=== PATIENT | male | born 1955 | race Caucasian/White ===

== ENCOUNTER 2022-04-01 15:29 | Inpatient (IN) ==
--- NOTE | 2022-04-01 16:13 | Emergency Department Note ---
Impression & Plan Symptomatic anemia, MDS (myelodysplastic syndrome), Thrombocytopenia ED Provider Note NAME: PJ NUNEZ AGE: 66 SEX: M : 1955 ARRIVES VIA: Walk-In INFORMANT: Patient, ED PROVIDER(S): Bong Abdi DO CHIEF COMPLAINT: Weakness HPI: The patient is a 66-year-old male who has a history of primary bone marrow cancer who presented to the emergency department for an evaluation of generalized weakness. He normally follows through the [facility] system in [place] in [place]. The patient had a CBC and was told by his primary visual merchandise manager to come to the emergency department for blood transfusion. The patient states he h as no black or bloody bowel movements. He denies having any chest pain but does complain of shortness of breath with exertion and lower extremity swelling. He states his symptoms are not new. They have been ongoing for quite some time. His family member states they were not going to go to [facility] because they did not want to "wait and some ER for 14 hours". ROS: See above HPI for pertinent positives & negatives. A total of 10 systems reviewed and were otherwise negative. PAST MEDICAL HISTORY: See Below PAST SURGICAL HISTORY: See Below FAMILY HISTORY: See Below SOCIAL HISTORY: See Below HOME MEDICATIONS: See Below ALLERGIES: See Below VITALS: See Below PHYSICAL EXAMINATION: GENERAL: Patient is awake alert in no acute distress patient is resting comfortably and showing no signs of anxiety EYES: The conjunctivae are clear. The pupils are round and reactive. EARS, NOSE, MOUTH AND THROAT: The nose is without any evidence of any deformity. NECK: The neck is nontender and supple. RESPIRATORY: Normal respiratory effort is noted there is no evidence of wheezing rhonchi or rales CARDIOVASCULAR: Regular rate and rhythm noted there no murmurs rubs or gallops normal S1 normal S2. GASTROINTESTINAL: The abdomen is soft. Abdomen is nontender. MUSCULOSKELETAL/EXTREMITIES: There is no evidence of gross deformity full range of motion is noted in the hips and shoulders. SKIN: Skin is warm and dry. There is no significant pedal edema. NEUROLOGIC: Patient is awake alert and oriented x3 MEDICAL DECISION MAKING: The patient is a 66-year-old male who presented to the emergency department for an evaluation of weakness. The patient has a history of myelodysplastic syndrome. He does develop bone marrow suppression and has low hemoglobin at times. He has had low platelets as well. He is required blood transfusion many times in the past. The patient was contacted by his primary visual merchandise manager and told to go to the emergency department for blood transfusion. I discussed the patient's laboratory results with him. I did consent the patient for blood transfusion and ordered multiple units of blood as well as platelets for him. [facility] agreed to evaluate patient in the emergency department for further management and disposition. Triage Nursing notes reviewed. Prior medical records reviewed Vital Signs: reviewed and remarkable for tachycardia. Differential diagnosis: Infection, dehydration, metabolic abnormality, hypo/hyperglycemia, electrolyte disturbance, anemia, hypoxia, cardiac sources, intracerebral event, toxicologic, neurologic, as well as other pathologies. ER treatment provided: See below Diagnostics interpreted by me: ECG: EKG was obtained in the emergency department. My interpretation is atrial sensed with ventricular paced rhythm at 112 bpm. PVCs were noted. No [place] sinus beats were appreciated. No previous tracing was available. Cardiac Monitoring: An order was placed for continuous cardiac monitoring. The monitor shows a rate of 106 bpm with sinus tachycardia. Laboratory studies: As stated above and show below. Imaging studies: See below Consultation(s): I discussed this case with Dr. Montes who is [facility] I have personally spent greater than 45 minutes of critical care time in the direct management of this patient. This includes bedside care, interpretation of diagnostic studies, and testing, discussion with consultants, patient, and family members, and other required patient management activities. This 45 minutes is in excess of all separately billable procedures. Past Med/Surg History Medical History (Updated 04/01/22 @ 21:12 by Bong Abdi DO) Hypertension Ischemic cardiomyopathy MDS (myelodysplastic syndrome) Pacemaker Primary cancer of bone marrow Social History Smoking Status: Unknown if ever smoked Preferred Language: South Korean Feels Safe at Home: Yes Allergies Allergies Allergy/AdvReac Type Severity Reaction Status Date / Time NSAIDS (Non-Steroidal AdvReac Unknown CONTRAINDICATED Verified 04/01/22 19:23 Anti-Inflamma D/T BLEEDING ISSUES Home Meds Home Medications Medication Instructions Recorded Confirmed acetaminophen 325 mg tablet 650 mg PO DIRECTED PRN Pain 04/01/22 04/01/22 (Tylenol) cholecalciferol (vitamin D3) 25 25 mcg PO DAILY 04/01/22 04/01/22 mcg (1,000 unit) capsule (Vitamin D3) empagliflozin 10 mg tablet 10 mg PO HS 04/01/22 04/01/22 (Jardiance) fluticasone propionate 50 2 spray intranasal DAILY PRN 04/01/22 04/01/22 mcg/actuation nasal Allergy Symptoms spray,suspension melatonin 10 mg tablet 10 mg PO HS PRN Sleep 04/01/22 04/01/22 metoprolol tartrate 25 mg tablet 25 mg PO BID 04/01/22 04/01/22 multivitamin 1 tab PO DAILY 04/01/22 04/01/22 spironolactone 25 mg tablet 25 mg PO HS 04/01/22 04/01/22 tamsulosin 0.4 mg capsule 0.8 mg PO HS 04/01/22 04/01/22 Results & Data (ED) Vital Signs Vital Signs - 24 hr 04/01/22 15:34 04/01/22 16:33 04/01/22 17:00 Temperature 37 C Temperature Source Temporal Artery Scan Pulse Rate 119 H 107 H Pulse Rate from SpO2 Sensor 106 H Pulse Rhythm Respiratory Rate 22 20 Respiratory Effort / Characteristics Non-Labored Spontaneous Respiratory Depth Normal Blood Pressure 101/63 125/92 Blood Pressure Mean 75 103 Pulse Oximetry 96 95 Oxygen Delivery Method Room Air Sepsis Recent Fever Within 48 Hours No Sepsis New/Unexplained Change in Mental Status N/A Sepsis Action Taken by Nursing No Action Required 04/01/22 17:00 04/01/22 18:13 04/01/22 18:34 Temperature 37.1 C 37.2 C Temperature Source Oral Oral Pulse Rate 107 H 105 H 94 H Pulse Rate from SpO2 Sensor 101 H Pulse Rhythm Regular Regular Respiratory Rate 18 20 20 Respiratory Effort / Characteristics Respiratory Depth Blood Pressure 113/87 123/80 Blood Pressure Mean 95 94 Pulse Oximetry 95 96 97 Oxygen Delivery Method Sepsis Recent Fever Within 48 Hours Sepsis New/Unexplained Change in Mental Status Sepsis Action Taken by Senior Care Medications Current Medication List: was personally reviewed by me Laboratory Data Attestation: I reviewed the patient's lab results. Result diagrams: 04/01/22 16:01 04/01/22 16:01 Lab Results 12/19/22 12/19/22 12/19/22 Range/Units 16:01 16:01 16:01 WBC 5.20 (4.8-10.8) K/ul RBC 2.66 L (4.63-6.08) M/uL Hgb 7.5 L (14.0-18.0) g/dl Hct 22.3 L (40.1-51.0) % MCV 83.8 (80.0-100.0) fL MCH 28.2 (25.0-34.0) pg MCHC 33.6 (32.0-36.0) g/dL RDW Std Deviation 45.1 (36.4-46.3) fL RDW Coeff of Toy 14.7 H (11.5-14.5) % Plt Count 22 L* (130-400) K/uL MPV 11.0 (9.4-12.4) fL Absolute Nucleated RBC 0.05 H (0-0) K/uL Nucleated RBC % (auto) 1.0 % Platelet Estimate Decreased L (Normal) PT 12.7 H (9.0-12.0) Seconds INR 1.2 H (0.9-1.1) APTT 33.1 H (21.0-31.0) Seconds PTT Ratio 1.2 Sodium (136-145) mmol/L Potassium (3.5-5.1) mmol/L Chloride (98-107) mmol/L Carbon Dioxide (21-32) mmol/L Anion Gap (3-11) BUN (6-23) mg/dl Creatinine (0.6-1.4) mg/dl Est Cr Clr Drug Dosing ml/min Est GFR ( Amer) ml/min Est GFR (Non-Af Amer) ml/min BUN/Creatinine Ratio (10-20) Glucose (70-99(Fasting)) mg/dl Calcium (8.5-10.1) mg/dl Total Bilirubin (0.2-1.0) mg/dl AST (13-39) U/L ALT (7-52) U/L Alkaline Phosphatase (34-104) U/L Total Protein (6.0-8.3) gm/dl Albumin (3.4-5.0) gm/dl Globulin (2.5-4.0) gm/dl Albumin/Globulin Ratio (0.9-2) SARS-CoV-2, RNA, NAAT (NEGATIVE) Blood Type O Positive Blood Type Recheck Antibody Screen NEGATIVE Crossmatch See Detail 04/01/22 04/01/22 04/01/22 Range/Units 16:01 16:15 17:34 WBC (4.8-10.8) K/ul RBC (4.63-6.08) M/uL Hgb (14.0-18.0) g/dl Hct (40.1-51.0) % MCV (80.0-100.0) fL MCH (25.0-34.0) pg MCHC (32.0-36.0) g/dL RDW Std Deviation (36.4-46.3) fL RDW Coeff of Toy (11.5-14.5) % Plt Count (130-400) K/uL MPV (9.4-12.4) fL Absolute Nucleated RBC (0-0) K/uL Nucleated RBC % (auto) % Platelet Estimate (Normal) PT (9.0-12.0) Seconds INR (0.9-1.1) APTT (21.0-31.0) Seconds PTT Ratio Sodium 134 L (136-145) mmol/L Potassium 4.3 (3.5-5.1) mmol/L Chloride 103 (98-107) mmol/L Carbon Dioxide 23 (21-32) mmol/L Anion Gap 8 (3-11) BUN 23 (6-23) mg/dl Creatinine 1.35 (0.6-1.4) mg/dl Est Cr Clr Drug Dosing 57.5 ml/min Est GFR ( Amer) 62.1 ml/min Est GFR (Non-Af Amer) 53.6 ml/min BUN/Creatinine Ratio 17.0 (10-20) Glucose 140 H (70-99(Fasting)) mg/dl Calcium 8.7 (8.5-10.1) mg/dl Total Bilirubin 1.0 (0.2-1.0) mg/dl AST 22 (13-39) U/L ALT 26 (7-52) U/L Alkaline Phosphatase 173 H (34-104) U/L Total Protein 7.4 (6.0-8.3) gm/dl Albumin 3.6 (3.4-5.0) gm/dl Globulin 3.8 (2.5-4.0) gm/dl Albumin/Globulin Ratio 0.9 (0.9-2) SARS-CoV-2, RNA, NAAT NEGATIVE (NEGATIVE) Blood Type Blood Type Recheck O Positive Antibody Screen Crossmatch Discharge Plan Visit Data Chief Complaint: Referred by Doctor Stated Complaint: BONE MARROW CANCER,BLOOD TRANSFUSION,REFERRED ED Provider: Bong Abdi Discharge Problem: Symptomatic anemia, MDS (myelodysplastic syndrome), Thrombocytopenia Patient Disposition: Being Evaluated by Hospitalist Discharge Instructions Interventions: ED Discharge Assessment Last Done: 04/01/22 21:13
[2022-04-01 16:37] LABS: Albumin Globulin Ratio 0.9 (0.9-2); Albumin Level 3.6 gm/dl (3.4-5.0); Calcium 8.7 mg/dl (8.5-10.1); Creatinine Clr Calc Pharmacy 57.5 ml/min; Est GFR (African American) 62.1 ml/min; Est GFR (Non-African American) 53.6 ml/min; Globulin 3.8 gm/dl (2.5-4.0); Potassium 4.3 mmol/L (3.5-5.1); Total Protein 7.4 gm/dl (6.0-8.3)
[2022-04-01 16:42] LABS: Hematocrit (blood only) 22.3 % (40.1-51.0); Hemoglobin 7.5 g/dl (14.0-18.0); Mean Corpuscular Hemoglobin 28.2 pg (25.0-34.0); Mean Corpuscular Hgb Conc 33.6 g/dL (32.0-36.0); Mean Corpuscular Volume 83.8 fL (80.0-100.0); Nucleated RBC # (auto) 0.05 K/uL (0-0); Platelet Count 22 K/uL (130-400); Platelet Estimate Decreased (Normal); RDW Coefficient of Variation 14.7 % (11.5-14.5); RDW Standard Deviation 45.1 fL (36.4-46.3); Red Blood Count 2.66 M/uL (4.63-6.08)
[2022-04-01 16:49] LABS: INR 1.2 (0.9-1.1); Partial Thromboplastin Ratio 1.2; Partial Thromboplastin Time 33.1 Seconds (21.0-31.0); Prothrombin Time 12.7 Seconds (9.0-12.0)
[2022-04-01] MEDS ORDERED: SODIUM CHLORIDE 0.9% 250 ML IV PRN (17:06)
--- NOTE | 2022-04-01 17:38 | History & Physical Report ---
Date of Service April 01, 2022 Assessment & Plan (1) MDS (myelodysplastic syndrome): Plan: - Recently diagnosed by bone biopsy in January, follows with [facility] hematology. - Due to begin chemo this month. - Hgb 7.5, PLT 22. No obvious source of acute bleeding, no petechia, lesions on oral mucosa. - 2 units irradiated pRBCs, 1 units of platelets ordered for transfusion. - Recheck h/h after transfusion is complete and AM labs. - Patient asking for prn medicine for diffuse body aches--cannot tolerate Tylenol as it makes him very diaphoertic, want to avoid NSAIDs--will order Tramadol prn. (2) Ischemic cardiomyopathy: Plan: - No prior records, reports previous EF 15% improved to 25% with pacer. - Continue Jardiance, metoprolol, spironolactone. (3) Hypertension: Plan: - Continue metoprolol, hold for HR < 60, SBP < 100. (4) BPH (benign prostatic hyperplasia): Plan: - Continue Flomax. - Checking UA for infection given reports of increased urinary frequency, aches, decreased appetite x4 days. Plan - Admit to PCU. - SCDs, defer on chemoppx given transfusion needs. - Full Code. History of Present Illness Chief Complaint: low hemoglobin and platelets on outpatient labs Primary Care Provider: Griselda Siu MD Brandon Lira is a 66-year-old male with past medical history myelodysplastic syndrome, ischemic cardiomyopathy with pacemaker present, and hypertension who is presenting today at the referral of an outside provider. Patient was recently diagnosed with MDS several months ago and has frequent labs drawn to monitor his blood counts, and has frequently required blood transfusions, 9 total since January. He usually presents to the hospital for transfusion when his hgb approaches 7. He was told today by his yield improvement engineer that his hemoglobin was approaching 7 and he referred to the ED for a blood transfusion. As he typically receives his care through the [facility] health system, we do not have any prior records but it seems as he was diagnosed with MDS by bone biopsy in January and is set to begin chemo this month. He has required 9 blood transfusions (units?) since January. He recently had an EGD and colonoscopy and reports there were no abnormal findings. he has not had any melena or blood in stool or rectum. As he normally is when is hemoglobin is low, he is tired, weak, fatigued, and short of breath. No chest pain or palpitations. He has decreased appetite and increased urination ovdr the poast 4 days, no fever, chills, abdominal pain, nausea, vomiting, or dysuria. In the ED he is mildly tachycardic, otherwise VS wnl and stable. Hgb is 7.5 and PLT 22. INR 1.2, aPTT 33.1. 2 units of irradiated pRBCs and 1 unit of platelets ordered for transfusion. Allergies Allergy/AdvReac Type Severity Reaction Status Date / Time NSAIDS (Non-Steroidal AdvReac Unknown CONTRAINDICATED Verified 04/01/22 19:23 Anti-Inflamma D/T BLEEDING ISSUES Home Medications Medication Instructions Recorded Confirmed Type acetaminophen 325 mg tablet 650 mg PO DIRECTED PRN Pain 04/01/22 04/01/22 History (Tylenol) cholecalciferol (vitamin D3) 25 25 mcg PO DAILY 04/01/22 04/01/22 History mcg (1,000 unit) capsule (Vitamin D3) empagliflozin 10 mg tablet 10 mg PO HS 04/01/22 04/01/22 History (Jardiance) fluticasone propionate 50 2 spray intranasal DAILY PRN 04/01/22 04/01/22 History mcg/actuation nasal Allergy Symptoms spray,suspension melatonin 10 mg tablet 10 mg PO HS PRN Sleep 04/01/22 04/01/22 History metoprolol tartrate 25 mg tablet 25 mg PO BID 04/01/22 04/01/22 History multivitamin 1 tab PO DAILY 04/01/22 04/01/22 History spironolactone 25 mg tablet 25 mg PO HS 04/01/22 04/01/22 History tamsulosin 0.4 mg capsule 0.8 mg PO HS 04/01/22 04/01/22 History Past Med/Surg History Medical History (Updated 04/01/22 @ 21:12 by Bong Abdi DO) Hypertension Ischemic cardiomyopathy MDS (myelodysplastic syndrome) Pacemaker Primary cancer of bone marrow Social History Smoking Status: Never smoker Second Hand Exposure: Yes; Hx Alcohol Use: Yes Alcohol type: hard liquor Hx Substance Use: No Preferred Language: Luxembourgish Communication Ability: Effective Exercise Manager Required: No Beliefs That Will Affect Care: None Current Living Situation: Alone Other Information That Helps Us Care for You: No Feels Safe at Home: Yes Safety Concerns: Feels Safe At This Time Assistive Devices: None Review of Systems Review of Systems: Constitutional: ongoing weakness, fatigue, night sweats, body aches, decreased appetite since January, appetite worse x 4 days; No fever/chills, Eyes: No diplopia, no worsening or blurred vision ENT: normal hearing, no trouble swallowing Respiratory: LA; No cough, sputum, dyspnea at rest Cardiovascular: No chest pain, tightness or palpitations Abdomen: No pain, nausea, vomiting, diarrhea or constipation : increased urinary frequency; Denies dysuria, hematuria, increased urgency/frequency, urinary retention Musculoskeletal: No joint pain, calf pain, swelling Neurologic: No weakness, numbness/tingling, or balance problems Psychiatric: No anxiety or depression Skin: No rash or itch Physical Exam Physical Exam: General: awake, alert, no apparent distress, + pallor Head: Normocephalic, atraumatic ENT: PERRL, EOMI, no pharyngeal exudate, mucous membranes moist Chest: Clear to auscultation, on room air, no adventitious breath sounds Cardiac: tachycardic rate and rhythm, no murmur, no JVD, normal peripheral pulses, good capillary refill Abdominal: NABS x 4 quadrants, soft, nontender to palpation, no rebound, guarding or tenderness Extremities: Normal inspection, no peripheral edema or erythema, calfs nontender to palpation Psych: Normal mood and affect Neuro: AAO x 3, strength intact bilaterally and rated 5/5, no motor deficits, speech is clear, no peripheral sensory deficits Skin: no rash or erythema Results & Data Results & Data ([facility]) Vital Signs (Past 12 Hours) Vital Signs Temp Pulse Resp BP Pulse Ox O2 Del Method 04/01/22 17:00 107 H 18 95 04/01/22 17:00 125/92 04/01/22 16:33 107 H 20 95 04/01/22 15:34 37 C 119 H 22 101/63 96 Room Air Laboratory Results Abnormal lab results 04/01/22 04/01/22 04/01/22 Range/Units 16:01 16:01 16:01 RBC 2.66 L (4.63-6.08) M/uL Hgb 7.5 L (14.0-18.0) g/dl Hct 22.3 L (40.1-51.0) % RDW Coeff of Toy 14.7 H (11.5-14.5) % Plt Count 22 L* (130-400) K/uL Absolute Nucleated RBC 0.05 H (0-0) K/uL Platelet Estimate Decreased L (Normal) PT 12.7 H (9.0-12.0) Seconds INR 1.2 H (0.9-1.1) APTT 33.1 H (21.0-31.0) Seconds Sodium (136-145) mmol/L Glucose (70-99(Fasting)) mg/dl Alkaline Phosphatase (34-104) U/L Crossmatch See Detail 04/01/22 Range/Units 16:01 RBC (4.63-6.08) M/uL Hgb (14.0-18.0) g/dl Hct (40.1-51.0) % RDW Coeff of Toy (11.5-14.5) % Plt Count (130-400) K/uL Absolute Nucleated RBC (0-0) K/uL Platelet Estimate (Normal) PT (9.0-12.0) Seconds INR (0.9-1.1) APTT (21.0-31.0) Seconds Sodium 134 L (136-145) mmol/L Glucose 140 H (70-99(Fasting)) mg/dl Alkaline Phosphatase 173 H (34-104) U/L Crossmatch ECG Additional Comments: Atrial-sensed ventricular-paced rhythm with occasional Premature ventricular complexes Biventricular pacemaker detected Abnormal ECG No previous ECGs available. Code Status & VTE Plan Code Status Full Code. Supervising Physician Co-Signing Physician Notes I personally saw and examined the patient. I verified all barfield points and agree with Jeane Sharif PA-C with the following exceptions and/or additions: 66-year-old male who has his usual care at [facility] told to come to the ER. Mainly feels run down. Advised to go to "any ER" by his oncologist for blood and platelet transfusions. Unfortunately he gets all of his care in the [facility] system therefore no previous notes available on admission. He has a number of chronic complaints such as restless leg syndrome which I recommended he follows up with his usual primary care physician and oncologist. Only acute complaint is feeling rundown. No nausea, vomiting, abdominal pain, melena or bright red blood in stool. O/E HS1+2, RRR, no murmurs, Chest CTAB, Abdo SNT, A&Ox3 PG Care Time/CCT Total # of Minutes Spent Total Time Spent with Patient: Total time spent is greater than 50% in coordination of care (as documented) at patient's floor/unit and/or counseling patient: Coding Level of Care Code 19509 Initial Inpt Care Lvl 3 Diagnoses MDS (myelodysplastic syndrome) D46.9 Ischemic cardiomyopathy I25.5 Hypertension I10 BPH (benign prostatic hyperplasia) N40.0
[2022-04-01] MEDS ORDERED: ALUMINUM/MAGNESIUM SUSP 30 ML UDC PO PRN (21:13)
[2022-04-01] MEDS ORDERED: FLUTICASONE PROPIONATE NA SPR 16 GM BTL PRN (21:13)
[2022-04-01] MEDS ORDERED: traMADol HCL 50 MG TABLET PO PRN ×2 (21:13)
[2022-04-01] MEDS ORDERED: POLYETHYLENE (MIRALAX) 17 GM PACK PO PRN (21:13)
[2022-04-01] MEDS: METOPROLOL TARTRATE 25 MG TAB PO SCH (23:25)
[2022-04-01] MEDS: EMPAGLIFLOZIN 25 MG TAB PO SCH (23:25)
[2022-04-01] MEDS: SPIRONOLACTONE 25 MG TAB PO SCH (23:26)
[2022-04-01] MEDS: TAMSULOSIN HCL 0.4 MG CAP PO SCH (23:26)
[2022-04-02 07:22] LABS: BUN Creatinine Ratio 17.9 (10-20); Calcium 8.2 mg/dl (8.5-10.1); Creatinine Clr Calc Pharmacy 73.2 ml/min; Est GFR (African American) 83.2 ml/min; Est GFR (Non-African American) 71.8 ml/min; Potassium 3.9 mmol/L (3.5-5.1)
[2022-04-02 07:48] LABS: Hematocrit (blood only) 22.5 % (40.1-51.0); Hemoglobin 7.9 g/dl (14.0-18.0); Mean Corpuscular Hemoglobin 29.2 pg (25.0-34.0); Mean Corpuscular Hgb Conc 35.1 g/dL (32.0-36.0); Mean Platelet Volume 10.5 fL (9.4-12.4); Nucleated RBC # (auto) 0.05 K/uL (0-0); Nucleated RBC % (auto) 1.2 %; Platelet Count 16 K/uL (130-400); RDW Coefficient of Variation 14.3 % (11.5-14.5); RDW Standard Deviation 42.8 fL (36.4-46.3); Red Blood Count 2.71 M/uL (4.63-6.08); White Blood Count 4.08 K/ul (4.8-10.8)
[2022-04-02 07:49] LABS: Basophils # (auto) 0.01 K/uL (0-0.2); Basophils % (auto) 0.2 %; Eosinophils # (auto) 0.01 K/uL (0-0.50); Eosinophils % (auto) 0.2 %; Immature Granulocytes # (auto) 0.23 K/uL (0.00-0.02); Immature Granulocytes % (auto) 5.6 %; Lymphocytes # (auto) 0.59 K/uL (1.2-3.4); Lymphocytes % (auto) 14.5 %; Monocytes # (auto) 0.51 K/uL (0.24-0.82); Monocytes % (auto) 12.5 %; Neutrophils # (auto) 2.73 K/uL (1.4-6.5); Ovalocytes 1+; Platelet Estimate Signific. Decreased (Normal); Polychromasia 1+
[2022-04-02] MEDS: METOPROLOL TARTRATE 25 MG TAB PO SCH ×2 (08:38→19:55)
--- NOTE | 2022-04-02 17:54 | Hospitalist Progress Note ---
Date of Service April 02, 2022 Assessment & Plan (1) MDS (myelodysplastic syndrome): Plan: - Platelet count dropped to 16,000 today yesterday was 25,000, he may need more transfusion of platelets and packed RBC, monitor for now, will be asked for hematology consult if continues to drop Recently diagnosed by bone biopsy in January, follows with [facility] hematology. - Due to begin chemo this month. - Hgb 7.5, PLT 22. No obvious source of acute bleeding, no petechia, lesions on oral mucosa. - 2 units irradiated pRBCs, 1 units of platelets ordered for transfusion. - Recheck h/h after transfusion is complete and AM labs. - Patient asking for prn medicine for diffuse body aches--cannot tolerate Tylenol as it makes him very diaphoertic, want to avoid NSAIDs--will order Tramadol prn. (2) Ischemic cardiomyopathy: Plan: - No prior records, reports previous EF 15% improved to 25% with pacer. - Continue Jardiance, metoprolol, spironolactone. (3) Hypertension: Plan: - Continue metoprolol, hold for HR < 60, SBP < 100. (4) BPH (benign prostatic hyperplasia): Plan: - Continue Flomax. - Checking UA for infection given reports of increased urinary frequency, aches, decreased appetite x4 days. Plan - Admit to PCU. - SCDs, defer on chemoppx given transfusion needs. - Full Code. Admission and Anticipated Discharge Date Admission Date: April 01, 2022 Review of Systems Review of Systems: Constitutional: ongoing weakness, fatigue, night sweats, body aches, decreased appetite since January, appetite worse x 4 days; No fever/chills, Eyes: No diplopia, no worsening or blurred vision ENT: normal hearing, no trouble swallowing Respiratory: LA; No cough, sputum, dyspnea at rest Cardiovascular: No chest pain, tightness or palpitations Abdomen: No pain, nausea, vomiting, diarrhea or constipation : increased urinary frequency; Denies dysuria, hematuria, increased urgency/frequency, urinary retention Musculoskeletal: No joint pain, calf pain, swelling Neurologic: No weakness, numbness/tingling, or balance problems Psychiatric: No anxiety or depression Skin: No rash or itch Physical Exam Physical Exam: General: awake, alert, no apparent distress, + pallor Head: Normocephalic, atraumatic ENT: PERRL, EOMI, no pharyngeal exudate, mucous membranes moist Chest: Clear to auscultation, on room air, no adventitious breath sounds Cardiac: tachycardic rate and rhythm, no murmur, no JVD, normal peripheral pulses, good capillary refill Abdominal: NABS x 4 quadrants, soft, nontender to palpation, no rebound, guarding or tenderness Extremities: Normal inspection, no peripheral edema or erythema, calfs nontender to palpation Psych: Normal mood and affect Neuro: AAO x 3, strength intact bilaterally and rated 5/5, no motor deficits, speech is clear, no peripheral sensory deficits Skin: no rash or erythema Results & Data Results & Data ([facility]) Vital Signs (Past 12 Hours) Vital Signs Temp Pulse Resp BP Pulse Ox O2 Del Method 04/02/22 15:37 36.6 C 97 H 18 129/72 96 Room Air 04/02/22 15:34 Room Air 04/02/22 11:52 36.5 C 110 H 20 116/63 98 Room Air 04/02/22 07:10 36.5 C 109 H 18 119/67 96 Room Air PG Care Time/CCT Total # of Minutes Spent Total Time Spent with Patient: Total time spent is greater than 50% in coordination of care (as documented) at patient's floor/unit and/or counseling patient: Coding Level of Care Code 23864 Subseq Hosp Care Lvl 2 Diagnoses MDS (myelodysplastic syndrome) D46.9 Ischemic cardiomyopathy I25.5 Hypertension I10 BPH (benign prostatic hyperplasia) N40.0
[2022-04-02] MEDS: TAMSULOSIN HCL 0.4 MG CAP PO SCH (19:53)
[2022-04-02] MEDS: SPIRONOLACTONE 25 MG TAB PO SCH (19:54)
[2022-04-02] MEDS: EMPAGLIFLOZIN 25 MG TAB PO SCH (19:54)
[2022-04-03 08:07] LABS: Hematocrit (blood only) 22.7 % (40.1-51.0); Mean Corpuscular Hemoglobin 29.6 pg (25.0-34.0); Mean Corpuscular Hgb Conc 35.2 g/dL (32.0-36.0); Mean Corpuscular Volume 84.1 fL (80.0-100.0); Nucleated RBC # (auto) 0.06 K/uL (0-0); Nucleated RBC % (auto) 1.4 %; Platelet Count 13 K/uL (130-400); RDW Coefficient of Variation 14.7 % (11.5-14.5); RDW Standard Deviation 45.1 fL (36.4-46.3)
[2022-04-03] MEDS: METOPROLOL TARTRATE 25 MG TAB PO SCH ×2 (08:33→20:18)
[2022-04-03] MEDS ORDERED: SODIUM CHLORIDE 0.9% 250 ML IV PRN ×3 (10:32→13:24)
--- NOTE | 2022-04-03 18:19 | Hospitalist Progress Note ---
Date of Service April 03, 2022 Assessment & Plan (1) MDS (myelodysplastic syndrome): Plan: Platelet continues to drop today platelet count is 13,000, discussed with his primary oncology recommend to keep his platelet count over 20,000, proceed with 2 units of platelet, proceed with another unit of packed RBC, so far has been receiving 3 units of packed RBC and 3 units of platelets patient has mild neutropenia and leukopenia Recently diagnosed by bone biopsy in January, follows with [facility] hematology. (2) Ischemic cardiomyopathy: Plan: - No prior records, reports previous EF 15% improved to 25% with pacer. - Continue Jardiance, metoprolol, spironolactone. (3) Hypertension: Plan: - Continue metoprolol, hold for HR < 60, SBP < 100. (4) BPH (benign prostatic hyperplasia): Plan: - Continue Flomax. - Checking UA for infection given reports of increased urinary frequency, aches, decreased appetite x4 days. Plan - Admit to PCU. - SCDs, defer on chemoppx given transfusion needs. - Full Code. Admission and Anticipated Discharge Date Admission Date: April 01, 2022 Subjective Spoke with his primary oncologist Dr. Aranda we will looking for hemoglobin more than 7 and platelet count more than 20,000 to start him on chemo on coming Friday Review of Systems Review of Systems: Constitutional: ongoing weakness, fatigue, night sweats, body aches, decreased appetite since January, appetite worse x 4 days; No fever/chills, Eyes: No diplopia, no worsening or blurred vision ENT: normal hearing, no trouble swallowing Respiratory: LA; No cough, sputum, dyspnea at rest Cardiovascular: No chest pain, tightness or palpitations Abdomen: No pain, nausea, vomiting, diarrhea or constipation : increased urinary frequency; Denies dysuria, hematuria, increased urgency/frequency, urinary retention Musculoskeletal: No joint pain, calf pain, swelling Neurologic: No weakness, numbness/tingling, or balance problems Psychiatric: No anxiety or depression Skin: No rash or itch Physical Exam Physical Exam: General: awake, alert, no apparent distress, + pallor Head: Normocephalic, atraumatic ENT: PERRL, EOMI, no pharyngeal exudate, mucous membranes moist Chest: Clear to auscultation, on room air, no adventitious breath sounds Cardiac: tachycardic rate and rhythm, no murmur, no JVD, normal peripheral pulses, good capillary refill Abdominal: NABS x 4 quadrants, soft, nontender to palpation, no rebound, guarding or tenderness Extremities: Normal inspection, no peripheral edema or erythema, calfs nontender to palpation Psych: Normal mood and affect Neuro: AAO x 3, strength intact bilaterally and rated 5/5, no motor deficits, speech is clear, no peripheral sensory deficits Skin: no rash or erythema Results & Data Results & Data ([facility]) Vital Signs (Past 12 Hours) Vital Signs Temp Pulse Pulse Resp BP BP Pulse Ox 04/03/22 18:11 37.6 C H 103 H 20 114/68 95 04/03/22 16:58 04/03/22 17:29 37.0 C 102 H 20 107/62 96 04/03/22 16:55 36.8 C 114 H 20 132/87 94 04/03/22 16:29 36.9 C 94 H 20 113/70 94 04/03/22 15:29 36.9 C 95 H 20 109/70 96 04/03/22 14:59 36.8 C 103 H 20 123/73 95 04/03/22 14:44 36.8 C 97 H 20 131/75 96 04/03/22 14:26 37.0 C 109 H 20 135/77 95 04/03/22 11:35 37.5 C 121 H 18 126/75 96 04/03/22 07:56 36.3 C L 68 16 143/59 H 96 O2 Del Method 04/03/22 18:11 04/03/22 16:58 Room Air 04/03/22 17:29 04/03/22 16:55 04/03/22 16:29 04/03/22 15:29 04/03/22 14:59 04/03/22 14:44 04/03/22 14:26 04/03/22 11:35 Room Air 04/03/22 07:56 Room Air PG Care Time/CCT Total # of Minutes Spent Total Time Spent with Patient: Total time spent is greater than 50% in coordination of care (as documented) at patient's floor/unit and/or counseling patient: Coding Level of Care Code 46061 Subseq Hosp Care Lvl 2 Diagnoses MDS (myelodysplastic syndrome) D46.9 Ischemic cardiomyopathy I25.5 Hypertension I10 BPH (benign prostatic hyperplasia) N40.0
[2022-04-03] MEDS: TAMSULOSIN HCL 0.4 MG CAP PO SCH (20:18)
[2022-04-03] MEDS: SPIRONOLACTONE 25 MG TAB PO SCH (20:18)
[2022-04-03] MEDS: EMPAGLIFLOZIN 25 MG TAB PO SCH (20:20)
--- NOTE | 2022-04-03 21:15 | Electrocardiogram Report ---
Test Reason : Blood Pressure : / mmHG Vent. Rate : 112 BPM Atrial Rate : 112 BPM P-R Int : 148 ms QRS Dur : 130 ms QT Int : 376 ms P-R-T Axes : 085 106 055 degrees QTc Int : 513 ms Atrial-sensed ventricular-paced rhythm with occasional Premature ventricular complexes Biventricular pacemaker detected Abnormal ECG No previous ECGs available Confirmed by Nik Lopez ([id number]) on 04/03/2022 9:14:36 PM Referred By: REFERRED SELF Confirmed By:Nik Lopez
[2022-04-04] MEDS: METOPROLOL TARTRATE 25 MG TAB PO SCH (08:16)
[2022-04-04 09:09] LABS: Hematocrit (blood only) 24.5 % (40.1-51.0); Hemoglobin 8.4 g/dl (14.0-18.0); Mean Corpuscular Hemoglobin 28.9 pg (25.0-34.0); Mean Corpuscular Hgb Conc 34.3 g/dL (32.0-36.0); Mean Corpuscular Volume 84.2 fL (80.0-100.0); Mean Platelet Volume 11.1 fL (9.4-12.4); Nucleated RBC # (auto) 0.05 K/uL (0-0); Nucleated RBC % (auto) 1.4 %; Platelet Count 18 K/uL (130-400); RDW Coefficient of Variation 14.5 % (11.5-14.5); RDW Standard Deviation 44.7 fL (36.4-46.3); Red Blood Count 2.91 M/uL (4.63-6.08); White Blood Count 3.69 K/ul (4.8-10.8)
[2022-04-04] MEDS ORDERED: SODIUM CHLORIDE 0.9% 250 ML IV PRN (10:06)
--- NOTE | 2022-04-04 11:34 | Consultation ---
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 He has had a full work-up and has a treatment plan through the [facility] system having worked with both their satellite in [place] and with the [facility] in [place]. Immediate transfusion needs for "safety" would usually be to keep hemoglobin at greater than 7-7.5 g/dL and platelets greater than 10,000/mcL. His cytopenias may represent a combination of marrow dysfunction and splenic sequestration in which case his functional hemostasis may be better than the specific platelet number suggests but there are no separate established guidelines for an alternative strategy in terms of a numerical threshold in the face of sequestration. There is an evolving sense that long-term maintenance of outpatients with MDS may not require triggered transfusions of platelets but rather reactive transfusions to episodes of bleeding but that is a concept that is still in evolution of most practitioners are still using a platelet threshold approach. While his heme/onc physician apparently indicated that he would need to be at 20,000 platelets to be able to receive his treatment, I think that is something that different experts might be more likely to take an approach of the 10,000 threshold and it is certainly not particularly practical to have to do multiple platelet transfusions keeping him at a higher level even as the treatment itself is counteracting that. Since he is not receiving active treatment at this time, I think that our goal should be as above for more basic support for now. If he were to have active bleeding that would move us from"prophylactic" to therapeutic transfusions and in that case it may be important to try to at least temporarily boosf platelet counts to the 20,000 or even as high as 50,000 level depending on the degree of threat of the bleeding episode. Those higher thresholds would be maintained only so long as it took to achieve hemostasis. It is not clear whether or not he might be a transplant candidate in time and thus irradiated transfusion products might be prudent for the time being. Checking B12 and folic acid level might be worthwhile to make sure there are no nutritional limits to his hematopoiesis. He has currently achieved reasonable hemoglobin levels and his platelets are adequate if there are no immediate bleeding issues and as such it would be conceivable that he can be discharged if otherwise. I have strongly urged Mr. Lira and his significant other Linda to coordinate all their care going forward through 1 site. He ideally should be getting his transfusion support and overall coordination with a single hematology/oncology team that knows him best and will be actively involved in all aspects of his care. Given that Dr. Aranda will be leaving the practice within days, Linda suggested that they may start to coordinate with the team in [place] who also knows the case well. Plan In the absence of bleeding or infection he is currently an adequate platelet count and hemoglobin levels and could be discharged if he is otherwise stable Going forward it would be best if he coordinates transfusion support through [place] in conjunction with the team that will be treating him there and/or with that team working with the team in [place] He did ask about other medications and I would try to streamline dose is much as possible to prevent any interactions. To that and if he is tolerating tramadol well I might use that for the time being both for his generalized musculoskeletal pains and for any specific restless leg slight discomfort so long as there is no indication of DVT or other pathophysiology lies behind that. History of Present Illness Reason for Consultation: Apparently new diagnosis of myelodysplastic or perhaps a myelodysplastic/myeloproliferative crossover syndrome with pancytopenia admitted for transfusion support. Asked to comment on his platelets. Attending Physician: Juan Pablo Kirk MD History of Present Illness Patient has been working with the cancer center in [place] with a Dr. Aranda, though that physician is leaving that practice as of next week. He has also been seen at [facility] in [place]. He has significant splenomegaly, pancytopenia and an apparent provisional diagnosis of myelodysplastic syndrome. Splenomegaly suggest there may be a myeloproliferative element to that. His primary support has been through the [facility] where he is being given multiple transfusions over the last weeks. Provisional plan is to start him on a azacitidine but that is now being delayed until April 22. He has some chronic musculoskeletal complaints particularly in his ankles and a restless leg type syndrome. On Tylenol has relieved that he was also been associated with some side effects but he seems to be doing well with the tramadol given here. He was admitted here basically for low blood counts and transfusion support, apparently feeling he would be able to get more rapid access to care here than in [place]. He has not been having any unusual bleeding or bruising issues and has had no fevers or rosenda infectious symptomatology Past medical history significant for cardiomyopathy hypertension and BPH. He has a pacemaker in place. He has had no other active malignant disorders. He is a former heavier alcohol drinker but is largely lose weight from that and is a never smoker. Allergies Allergy/AdvReac Type Severity Reaction Status Date / Time NSAIDS (Non-Steroidal AdvReac Unknown CONTRAINDICATED Verified 04/01/22 19:23 Anti-Inflamma D/T BLEEDING ISSUES Home Medications Medication Instructions Recorded Confirmed Type acetaminophen 325 mg tablet 650 mg PO DIRECTED PRN Pain 04/01/22 04/01/22 History (Tylenol) cholecalciferol (vitamin D3) 25 25 mcg PO DAILY 04/01/22 04/01/22 History mcg (1,000 unit) capsule (Vitamin D3) empagliflozin 10 mg tablet 10 mg PO HS 04/01/22 04/01/22 History (Jardiance) fluticasone propionate 50 2 spray intranasal DAILY PRN 04/01/22 04/01/22 History mcg/actuation nasal Allergy Symptoms spray,suspension melatonin 10 mg tablet 10 mg PO HS PRN Sleep 04/01/22 04/01/22 History metoprolol tartrate 25 mg tablet 25 mg PO BID 04/01/22 04/01/22 History multivitamin 1 tab PO DAILY 04/01/22 04/01/22 History spironolactone 25 mg tablet 25 mg PO HS 04/01/22 04/01/22 History tamsulosin 0.4 mg capsule 0.8 mg PO HS 04/01/22 04/01/22 History Patient History Medical History (Updated 04/01/22 @ 21:12 by Bong Abdi DO) Hypertension Ischemic cardiomyopathy MDS (myelodysplastic syndrome) Pacemaker Primary cancer of bone marrow Social History Smoking Status: Never smoker Second Hand Exposure: Yes; Hx Alcohol Use: Yes Alcohol type: hard liquor Hx Substance Use: No Preferred Language: Liberian Communication Ability: Effective Vehicle Window Tinter Required: No Beliefs That Will Affect Care: None Current Living Situation: Alone Other Information That Helps Us Care for You: No Feels Safe at Home: Yes Safety Concerns: Feels Safe At This Time Assistive Devices: None Physical Exam Physical Exam: Borderline tachycardia but overall stable vital signs. He is resting comfortably in bed, is alert does not seem in any acute distress. His lungs seem clear, cardiac rhythm seems regular. Abdomen is protuberant and there is a fullness in the left upper quadrant suggesting significant splenomegaly though I am having trouble determining the tip which seems to perhaps as well as the umbilicus. He does not have peritoneal signs. Extremities are without dramatic edema or any signs of DVT. Results & Data ([facility]) Vital Signs (Past 12 Hours) Vital Signs Temp Pulse Pulse Resp BP BP BP 04/04/22 10:55 36.7 C 103 H 16 117/69 04/04/22 09:52 106 H 04/04/22 09:46 04/04/22 07:27 37.4 C 100 H 18 129/73 04/04/22 03:59 37.0 C 105 H 18 128/79 04/04/22 01:15 37.0 C 101 H 15 131/72 04/04/22 00:15 36.9 C 97 H 16 111/64 04/03/22 23:59 36.8 C 102 H 13 142/74 H Pulse Ox O2 Del Method 04/04/22 10:55 96 Room Air 04/04/22 09:52 04/04/22 09:46 Room Air 04/04/22 07:27 93 Room Air 04/04/22 03:59 94 Room Air 04/04/22 01:15 96 04/04/22 00:15 94 04/03/22 23:59 96 Laboratory Results Abnormal lab results 04/01/22 04/04/22 Range/Units 16:01 08:29 WBC 3.69 L (4.8-10.8) K/ul RBC 2.91 L (4.63-6.08) M/uL Hgb 8.4 L (14.0-18.0) g/dl Hct 24.5 L (40.1-51.0) % Plt Count 18 L* (130-400) K/uL Absolute Nucleated RBC 0.05 H (0-0) K/uL Crossmatch See Detail PG Care Time/CCT Total # of Minutes Spent Total Time Spent with Patient: Total time spent is greater than 50% in coordination of care (as documented) at patient's floor/unit and/or counseling patient: Coding Level of Care Code 01189 Inpt Consult Level 4 History Expanded Problem Focused Exam Expanded Problem Focused Medical Decision Making Moderate Complexity Diagnoses Thrombocytopenia D69.6 Symptomatic anemia D64.9 MDS (myelodysplastic syndrome) D46.9
--- NOTE | 2022-04-06 08:47 | Discharge Summary ---
Date of Service April 06, 2022 Admission HPI Per Admitting Provider Brandon Lira is a 66-year-old male with past medical history myelodysplastic syndrome, ischemic cardiomyopathy with pacemaker present, and hypertension who is presenting today at the referral of an outside provider. Patient was recently diagnosed with MDS several months ago and has frequent labs drawn to monitor his blood counts, and has frequently required blood transfusions, 9 total since January. He usually presents to the hospital for transfusion when his hgb approaches 7. He was told today by his certified pesticide applicator that his hemoglobin was approaching 7 and he referred to the ED for a blood transfusion. As he typically receives his care through the [facility] health system, we do not have any prior records but it seems as he was diagnosed with MDS by bone biopsy in January and is set to begin chemo this month. He has required 9 blood transfusions (units?) since January. He recently had an EGD and colonoscopy and reports there were no abnormal findings. he has not had any melena or blood in stool or rectum. As he normally is when is hemoglobin is low, he is tired, weak, fatigued, and short of breath. No chest pain or palpitations. He has decreased appetite and increased urination ovdr the poast 4 days, no fever, chills, abdominal pain, nausea, vomiting, or dysuria. In the ED he is mildly tachycardic, otherwise VS wnl and stable. Hgb is 7.5 and PLT 22. INR 1.2, aPTT 33.1. 2 units of irradiated pRBCs and 1 unit of platelets ordered for transfusion. 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 Discharge Exam General: awake, alert, no apparent distress, + pallor Head: Normocephalic, atraumatic ENT: PERRL, EOMI, no pharyngeal exudate, mucous membranes moist Chest: Clear to auscultation, on room air, no adventitious breath sounds Cardiac: tachycardic rate and rhythm, no murmur, no JVD, normal peripheral pulses, good capillary refill Abdominal: NABS x 4 quadrants, soft, nontender to palpation, no rebound, guarding or tenderness Extremities: Normal inspection, no peripheral edema or erythema, calfs nontender to palpation Psych: Normal mood and affect Neuro: AAO x 3, strength intact bilaterally and rated 5/5, no motor deficits, speech is clear, no peripheral sensory deficits Skin: no rash or erythema Discharge Data Allergies Allergy/AdvReac Type Severity Reaction Status Date / Time NSAIDS (Non-Steroidal AdvReac Unknown CONTRAINDICATED Verified 04/01/22 19:23 Anti-Inflamma D/T BLEEDING ISSUES Consultations 04/01/22 18:07 ED Decision to Admit Stat 04/04/22 11:19 Consult Hematology Routine Hospital Course (1) MDS (myelodysplastic syndrome): The patient is diagnosed with myeloproliferative/myelodysplastic has been checking his CBC twice weekly patient admitted to the hospital with pancytopenia, requiring platelet and packed RBC transfusion, patient consulted with oncology, recommend to keep his platelet above 10,000 and hemoglobin above 7 the patient received multiple units of packed RBC and platelet this admission, his platelet prior to discharge was 18,000 and his hemoglobin was 8.4. his primary oncologist recommended to keep his platelet count over 20,000 Recently diagnosed by bone biopsy in January, follows with [facility] hematology. (2) Ischemic cardiomyopathy: - No prior records, reports previous EF 15% improved to 25% with pacer. - Continue Jardiance, metoprolol, spironolactone. (3) Hypertension: - Continue metoprolol, hold for HR < 60, SBP < 100. (4) BPH (benign prostatic hyperplasia): - Continue Flomax. - Checking UA for infection given reports of increased urinary frequency, aches, decreased appetite x4 days. Plan - Admit to PCU. - SCDs, defer on chemoppx given transfusion needs. - Full Code. 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 Activity: Resume your previous activity Lifting: Gradually increase as tolerated Bathing: No limitations Sexual Activity: When tolerated Exercise/Sports: Gradually increase as tolerated Driving/Machine Use: No limitations Weightbearing: Full weightbearing Non-emergency contact: Primary Care Provider and Oncologist Call non-emergency contact if: you have any medication questions and your symptoms worsen Follow-up/Referrals: Griselda Siu MD [Primary Care Provider] - Diet: Carb Consistent or DM2 Addtl Attending Provider Instructions: Please follow-up with your oncologist as instructed Pending Studies at Discharge: No Stand-Alone Forms: My [facility], Smoking Cessation Medications and DC Order Prescriptions: Continued spironolactone 25 mg tablet 25 mg PO HS tamsulosin 0.4 mg capsule 0.8 mg PO HS fluticasone propionate 50 mcg/actuation spray,suspension 2 spray INTRANASAL DAILY PRN (Reason: Allergy Symptoms) metoprolol tartrate 25 mg tablet 25 mg PO BID Jardiance 10 mg tablet 10 mg PO HS multivitamin Tablet 1 tab PO DAILY acetaminophen [Tylenol] 325 mg Tablet 650 mg PO DIRECTED PRN (Reason: Pain) cholecalciferol (vitamin D3) [Vitamin D3] 25 mcg (1,000 unit) Capsule 25 mcg PO DAILY melatonin 10 mg Tablet 10 mg PO HS PRN (Reason: Sleep) Discharge Orders: Discharge Order (Routine); Ordered 04/04/22 Ordered By: Juan Pablo Omer/Other Patient Handouts: Understanding Deep Vein Thrombosis, DVT Complications, Preventing Deep Vein Thrombosis Admission Data Admit Date/Time: 04/01/22 18:39 Attending Provider: Juan Pablo Kirk Admit Provider: Alexandro Montes Primary Care Provider: Griselda Siu Other Providers: Alexandro Montes ; Terence Luke Other Interventions: Discharge Summary Assessment (RN) Last Done: 04/04/22 17:33 Coding Level of Care Code D/C DAY MANAGEMENT >30 MINS Diagnoses MDS (myelodysplastic syndrome) D46.9 Ischemic cardiomyopathy I25.5 Hypertension I10 BPH (benign prostatic hyperplasia) N40.0
== END 2022-04-04 19:02 | disposition home or self-care (01) | DRG 812 ==
LOC: ED 15:29 → EDINP 18:39 → SUATTDRO 18:39 → 2S 21:13
DX: N40.0 Benign prostatic hyperplasia without lower urinary tract symptoms; I10 Essential (primary) hypertension; D46.9 Myelodysplastic syndrome, unspecified; Z95.0 Presence of cardiac pacemaker; Z79.899 Other long term (current) drug therapy; D61.818 Other pancytopenia; Z91.09 Other allergy status, other than to drugs and biological substances; I25.5 Ischemic cardiomyopathy